=== PATIENT | male | born 1995 | race Caucasian/White ===

== ENCOUNTER 2017-10-02 08:36 | Day surgery (SDC) | payer OTHER ==
[2017-09-30 16:30] LABS: Basophils # (auto) 0.1 uL; Basophils % (auto) 1.2 % (0.0-2.0); Eosinophils # (auto) 0.4 uL; Eosinophils % (auto) 4.9 % (0.0-7.0); Lymphocytes # (auto) 1.9 uL; Lymphocytes % (auto) 24.2 % (10.0-50.0); Monocytes # (auto) 0.6 uL; Monocytes % (auto) 7.4 % (0.0-12.0); Neutrophils # (auto) 4.8 uL; Neutrophils % (auto) 62.3 % (37.0-80.0); Nucleated Red Blood Cells % 0.4 %; White Blood Cell 7.7 10^3/uL (4.4-10.8)
[2017-09-30 16:31] LABS: Hematocrit 44.1 % (41.0-53.0); Hemoglobin 15.1 g/dL (13.5-17.5); Mean Corpuscular Hemoglobin 30.3 pg (28.0-32.0); Mean Corpuscular Hgb Conc. 34.2 g/dL (32.0-36.0); Mean Corpuscular Volume 88.6 fL (80.0-100.0); Platelet Count (auto) 368 10^3/uL (140-450); Red Blood Cells 4.98 10^6/uL (4.5-5.90); Red Cell Distribution Width 13.1 % (11.8-14.3)
[2017-09-30 16:33] LABS: Urine Bacteria NONE SEEN /hpf (None Seen); Urine Blood Negative /uL (Negative); Urine Specific Gravity 1.006 (1.001-1.035); Urine WBC 1 /hpf (0 - 3)
[2017-09-30 16:50] LABS: Albumin 4.2 g/dL (3.4-5.0); BUN/Creatinine Ratio 13.6; Bilirubin, Total 0.4 mg/dL (0.2-1.0); Calcium 9.6 mg/dL (8.5-10.1); Potassium 4.2 mmol/L (3.5-5.1); Total Protein 7.7 g/dL (6.4-8.2)
[2017-09-30 17:09] LABS: INR 0.95 (0.9-1.15); Partial Thromboplastin Time 32.9 sec (22.64-33.71); Prothrombin Time 10.4 sec (9.37-12.3)
[~2017-10-02] VITALS: Ht 182.9 cm; Wt 113.4 kg
[2017-10-02] MEDS ORDERED: ceFAZolin 1GM/50ML 50 ML IV ONE (09:01)
[2017-10-02] MEDS ORDERED: PROPOFOL 10 MG/ML 20 ML IV ONE (10:40)
[2017-10-02] MEDS ORDERED: ROCURONIUM 10MG/ML 10ML VIAL IV ONE (10:40)
[2017-10-02] MEDS ORDERED: LIDOCAINE HCL 2 %PF INJ 10ML AMP IJ ONE (10:40)
[2017-10-02] MEDS ORDERED: MIDAZOLAM HCL 1MG/1ML-2 ML VIAL ONE (10:40)
[2017-10-02] MEDS ORDERED: LIDOCAINE 1% HCL (LOCAL ANESTH.) INJ 20ML MDV ONE (11:26)
[2017-10-02] MEDS ORDERED: SUCCINYLCHOLINE CHLORIDE 20 MG/ML 10ML VIAL IV ONE (11:26)
[2017-10-02] MEDS ORDERED: BUPIVACAINE 0.25% INJ 50ML VIAL ONE (11:34)
[2017-10-02] MEDS ORDERED: fentaNYL CITRATE 100 MCG/2 ML VL ONE (11:40)
[2017-10-02] MEDS ORDERED: NALOXONE HCL 0.4 MG/ML VIAL IV PRN (11:45)
[2017-10-02] MEDS ORDERED: ONDANSETRON HCL 4 MG/2 ML VIAL IV ONE (11:45)
[2017-10-02] MEDS ORDERED: NEOSTIGMINE 1 MG/ML INJ (10mg/10ML VIAL) ONE (12:07)
[2017-10-02] MEDS ORDERED: GLYCOPYRROLATE 0.2 MG/ML 1ML VIAL ONE (12:07)
[2017-10-02] MEDS: MORPHINE SULFATE 4 MG/ML SYR/VIAL IV PRN ×3 (12:48→13:48)
[2017-10-02 14:21] VITALS: BP 120/59
== END 2017-10-02 14:35 | disposition home or self-care (01) ==
LOC: SUR 08:36
PROVIDERS: ATTEND Urology
DX: I86.1 Scrotal varices (principal); G47.33 Obstructive sleep apnea (adult) (pediatric); Z87.891 Personal history of nicotine dependence; E66.9 Obesity, unspecified; Z68.33 Body mass index [BMI] 33.0-33.9, adult
CPT/HCPCS: 36415; 55550; 80053; 81001; 85025; 85610; 85730; J0330; J0690; J2001; J2250; J2270; J2704; J3010; J3490; J7030